=== PATIENT | female | born 1990 | race Caucasian/White ===

== ENCOUNTER 2020-09-14 20:00 | Emergency (ER) | payer MEDICAID ==
[~2020-09-14] VITALS: Ht 162.6 cm; Wt 43.0 kg
[~2020-09-14 20:00] MED LIST: ALBU18HF2 IH; PRED20TA PO
[2020-09-14 20:14] VITALS: BP 152/90
[2020-09-14] MEDS ORDERED: HYDROcodone/acetaminophen 5mg/325mg tablet PO ONE (21:55)
== END 2020-09-14 22:25 | disposition home or self-care (01) ==
LOC: ER 20:01
DX: S90.31XA Contusion of right foot, initial encounter (principal); Z90.49 Acquired absence of other specified parts of digestive tract; Z72.89 Other problems related to lifestyle; Z88.5 Allergy status to narcotic agent; Z79.899 Other long term (current) drug therapy; W22.8XXA Striking against or struck by other objects, initial encounter; Y93.89 Activity, other specified; Y92.89 Other specified places as the place of occurrence of the external cause; Y99.8 Other external cause status
CPT/HCPCS: 73630; 99283

== ENCOUNTER 2021-01-05 21:52 | Emergency (ER) | payer MEDICAID ==
[~2021-01-05] VITALS: Ht 162.6 cm; Wt 39.5 kg
[2021-01-05 22:54] LABS: BASOPHILS % (AUTO) 0.3 % (0-1); EOSINOPHILS % (AUTO) 0.3 % (0-6); HEMATOCRIT 39.6 % (35.0-45.0); HEMOGLOBIN 13.2 g/dl (12.0-16.0); LYMPHOCYTES # (AUTO) 0.5 X10'3 (1.1-4.8); LYMPHOCYTES % (AUTO) 12.4 % (21-51); MEAN CORPUSCULAR HEMOGLOBIN 36.7 PG (27.0-31.0); MEAN CORPUSCULAR HGB CONC 33.3 g/dL (33.0-36.5); MEAN CORPUSCULAR VOLUME 110.3 FL (78-98); MEAN PLATELET VOLUME 8.2 FL (7.4-10.4); MONOCYTES # (AUTO) 0.1 X10'3 (0-0.9); MONOCYTES % (AUTO) 3.4 % (2-12); NEUTROPHILS # (AUTO) 3.6 X10'3 (1.8-7.7); NEUTROPHILS % (AUTO) 83.6 % (42-75); PLATELET COUNT 77 X10'3 (140-440); RED BLOOD COUNT 3.59 X10'6 (4.20-5.60); RED CELL DISTRIBUTION WIDTH 14.6 % (11.5-14.5); WHITE BLOOD COUNT 4.3 X10'3 (4.5-11.0)
[2021-01-05 23:07] LABS: ALANINE AMINOTRANSFERASE 99 U/L (12-78); ALBUMIN 4.5 G/DL (3.4-5.0); ALBUMIN/GLOBULIN RATIO 1.3 (1.1-1.5); ALKALINE PHOSPHATASE 110 IU/L (46-116); ANION GAP 27 (8-16); ASPARTATE AMINO TRANSFERASE 220 U/L (10-37); BILIRUBIN,TOTAL 1.7 MG/DL (0.1-1.0); BLOOD UREA NITROGEN 12 MG/DL (7-18); BUN/CREATININE RATIO 17.1 (6.6-38.0); CALCIUM 8.4 MG/DL (8.5-10.1); CHLORIDE 97 MMOL/L (99-107); GLUCOSE 85 MG/DL (70-104); LIPASE 54 U/L (73-393); POTASSIUM 3.2 MMOL/L (3.5-5.1); SODIUM 141 MMOL/L (135-145); TOTAL CARBON DIOXIDE 16.8 MMOL/L (24-32); TOTAL PROTEIN 8.1 G/DL (6.4-8.2); eGFR > 90 ML/MIN
[2021-01-05] MEDS ORDERED: morphine 4 MG/ML inj SYRINge IV PRN (23:20)
[2021-01-05] MEDS ORDERED: proCHLORperazine 10 MG/2 ml inj IV ONE (23:20)
[2021-01-05] MEDS ORDERED: ondansetron/PF 4mg/2ml inj IV ONE (23:20)
[2021-01-05] MEDS ORDERED: normal saline 1000ML IV soln IVB ONE (23:20)
[2021-01-05 23:46] LABS: LARGE PLATELETS FEW; PLATELET ESTIMATE DECREASED
[2021-01-06] MEDS ORDERED: normal saline 1000ML IV soln IVB ONE (00:05)
[2021-01-06] MEDS ORDERED: ketorolac trometh. 30mg/ml inj. IV ONE (01:25)
[2021-01-06 01:44] LABS: URINE HCG NEGATIVE (NEG)
[2021-01-06 02:31] LABS: CLARITY,URINE SLIGHTLY CLOUDY (Clear); COLOR,URINE AMBER (Yellow); GLUCOSE, URINE NEGATIVE (Neg); KETONES,URINE >=80 mg/dl (Neg); LEUKOCYTE ESTERASE ,URINE NEGATIVE (Neg); NITRITES, URINE POSITIVE (Neg); OCCULT BLOOD,URINE SMALL (Neg); PROTEIN,URINE 100 mg/dl (Neg)
[2021-01-06 02:32] LABS: UA COLLECTION TYPE CLN CATCH MIDSTREAM
[2021-01-06 02:40] LABS: BACTERIA,URINE 3+ /HPF (Neg); MUCUS STRANDS MODERATE /LPF (Neg); RBC,URINE 0-2 /HPF (0-2); SQUAMOUS EPITHELIAL CELL,UR MODERATE /LPF (FEW)
[2021-01-06] MEDS ORDERED: CEPH-585 PO (02:51)
[2021-01-06] MEDS ORDERED: cephalexin 250mg capsule PO ONE (02:55)
[2021-01-06] MEDS ORDERED: proCHLORperazine 10 MG/2 ml inj IV ONE (03:10)
[2021-01-06 03:38] VITALS: BP 108/62
[2021-01-06] MEDS ORDERED: PROC-8 PO (03:59)
== END 2021-01-06 04:13 | disposition home or self-care (01) ==
LOC: ER 21:52
DX: R10.30 Lower abdominal pain, unspecified (principal); R94.5 Abnormal results of liver function studies; F17.200 Nicotine dependence, unspecified, uncomplicated; Z90.49 Acquired absence of other specified parts of digestive tract; Z87.440 Personal history of urinary (tract) infections; Z79.899 Other long term (current) drug therapy; Z88.8 Allergy status to other drugs, medicaments and biological substances
CPT/HCPCS: 36415; 80053; 81001; 81025; 83690; 85008; 85025; 87088; 87186; 96361; 96374; 96375; 96376; 99284; J0780; J1885; J2270; J7030; 87077

== ENCOUNTER 2023-12-19 10:11 | Emergency (ER) | payer MEDICAID ==
[~2023-12-19] VITALS: Ht 162.6 cm; Wt 53.4 kg
[~2023-12-19 10:11] MED LIST changes: +PROC-8 PO
[2023-12-19 10:42] VITALS: BP 131/89; PULSE 124; RESP 16; TEMP 98.6; O2SAT 96
== END 2023-12-19 10:43 | disposition home or self-care (01) ==
LOC: ER 10:11
DX: S93.402A Sprain of unspecified ligament of left ankle, initial encounter (principal); Z88.8 Allergy status to other drugs, medicaments and biological substances; Z79.899 Other long term (current) drug therapy; Z98.890 Other specified postprocedural states; W10.9XXA Fall (on) (from) unspecified stairs and steps, initial encounter; Y93.89 Activity, other specified; Y92.89 Other specified places as the place of occurrence of the external cause; Y99.8 Other external cause status
CPT/HCPCS: 99284; L4360